=== PATIENT | male | born 1940 | race Caucasian/White ===

== ENCOUNTER 2017-12-10 09:17 | Inpatient (IN) | payer BC, OTHER ==
[~2017-12-10] VITALS: Ht 175.3 cm; Wt 86.2 kg
[2017-12-10 10:14] LABS: Basophils # (auto) 0 uL; Basophils % (auto) 0.3 % (0.0-2.0); Eosinophils # (auto) 0 uL; Eosinophils % (auto) 0.2 % (0.0-7.0); Hematocrit 45.7 % (41.0-53.0); Hemoglobin 15.4 g/dL (13.5-17.5); Lymphocytes # (auto) 0.8 uL; Lymphocytes % (auto) 9.4 % (10.0-50.0); Mean Corpuscular Hemoglobin 30.1 pg (28.0-32.0); Mean Corpuscular Hgb Conc. 33.6 g/dL (32.0-36.0); Mean Corpuscular Volume 89.5 fL (80.0-100.0); Monocytes # (auto) 0.9 uL; Neutrophils # (auto) 7.2 uL; Neutrophils % (auto) 80.1 % (37.0-80.0); Nucleated Red Blood Cells % 0.1 %; Platelet Count (auto) 250 10^3/uL (140-450); Red Blood Cells 5.11 10^6/uL (4.5-5.90); Red Cell Distribution Width 14.5 % (11.8-14.3)
[2017-12-10 10:41] LABS: Alanine Aminotransferase 333 U/L (16-61); Alkaline Phosphatase 393 U/L (45-117); Anion Gap 13 (5-15); Aspartate Aminotransferase 305 U/L (15-37); BUN/Creatinine Ratio 10.9; Bilirubin, Total 8.4 mg/dL (0.2-1.0); Blood Urea Nitrogen 13 mg/dL (7-18); Calcium 8.9 mg/dL (8.5-10.1); Carbon Dioxide 22 mmol/L (21-32); Chloride 97 mmol/L (98-107); GFR African American 77 mL/min; GFR Non-African American 63 mL/min; Glucose 188 mg/dL (74-106); Magnesium 1.6 mg/dL (1.6-2.6); Potassium 4.5 mmol/L (3.5-5.1); Sodium 132 mmol/L (136-145); Total Protein 7.3 g/dL (6.4-8.2)
[2017-12-10] MEDS ORDERED: DEXTROSE (50%) 50ML SYRG IV PRN (11:45)
[2017-12-10] MEDS ORDERED: SODIUM CHLORIDE 0.9% 1,000 ML IV SCH (11:49)
[2017-12-10] MEDS ORDERED: IOHEXOL 300 MG/ML 100ML BOTTLE IJ ONE (11:56)
[2017-12-10] MEDS ORDERED: HYDROcodone-ACET 5/325MG TAB PO PRN (12:00)
[2017-12-10] MEDS ORDERED: TEMAZEPAM 15 MG CAP PO PRN (12:00)
[2017-12-10] MEDS ORDERED: ACETAMINOPHEN 325 MG TAB PO PRN (12:00)
[2017-12-10] MEDS ORDERED: glipiZIDE 5 MG TAB PO ONE (12:00)
[2017-12-10] MEDS ORDERED: DOCUSATE SOD 100 MG CAP PO PRN (12:00)
[2017-12-10] MEDS ORDERED: MORPHINE SULFATE 4 MG/ML SYR/VIAL IV PRN ×2 (12:00)
[2017-12-10] MEDS ORDERED: Boost Glucose Control 8 Ounces PO SCH (12:00)
[2017-12-10] MEDS ORDERED: ZINC SULFATE 220 MG CAP PO ONE (12:00)
[2017-12-10] MEDS ORDERED: ONDANSETRON HCL 4 MG/2 ML VIAL IV PRN (12:00)
[2017-12-10] MEDS: InsuLIN REG 1unit/0.01ml Soln (100units/ml) SC SCH ×2 (12:00→16:07)
[2017-12-10] MEDS ORDERED: ASCORBIC ACID 500 MG TAB PO ONE (12:00)
[2017-12-10] MEDS: ACCU-CHEK COMFORT CURVE STRIP VI SCH ×2 (12:00→16:06)
[2017-12-10] MEDS ORDERED: NITROGLYCERIN 0.4 MG SL TAB SL PRN (12:00)
[2017-12-10] MEDS ORDERED: LISINOPRIL 20 MG TAB PO ONE (12:15)
[2017-12-10] MEDS ORDERED: MULTIPLE VITAMIN TAB PO ONE (12:15)
[2017-12-10] MEDS ORDERED: ASPirin-EC 81 mg tab PO ONE (12:15)
[2017-12-10] MEDS ORDERED: METOPROLOL SUCCINATE XL 50 MG TAB PO ONE ×2 (12:15)
[2017-12-10] MEDS ORDERED: FAMOTIDINE 20 MG TAB PO ONE (12:15)
[2017-12-10 12:30] LABS: INR 1.15 (0.9-1.15); Prothrombin Time 12.5 sec (9.37-12.3)
[2017-12-10 16:51] VITALS: BP 118/78
[2017-12-10] MEDS ORDERED: TERAZOSIN HCL 5 MG CAP PO SCH (22:00)
[2017-12-10] MEDS ORDERED: ASCORBIC ACID 500 MG TAB PO SCH (22:00)
[2017-12-10] MEDS ORDERED: FAMOTIDINE 20 MG TAB PO SCH (22:00)
[2017-12-10] MEDS ORDERED: ATORVASTATIN 20 MG TAB PO SCH (22:00)
[2017-12-11] MEDS ORDERED: glipiZIDE 5 MG TAB PO SCH (07:00)
[2017-12-11] MEDS ORDERED: LISINOPRIL 20 MG TAB PO SCH (10:00)
[2017-12-11] MEDS ORDERED: ASPirin-EC 81 mg tab PO SCH (10:00)
[2017-12-11] MEDS ORDERED: MULTIPLE VITAMIN TAB PO SCH (10:00)
[2017-12-11] MEDS ORDERED: METOPROLOL SUCCINATE XL 50 MG TAB PO SCH (10:00)
[2017-12-11] MEDS ORDERED: ZINC SULFATE 220 MG CAP PO SCH (10:00)
== END 2017-12-10 17:05 | disposition short-term general hospital (02) | DRG 843 ==
LOC: EDBD 09:17 → ER 09:17 → EDUNIT# 09:17 → TELE 09:18
PROVIDERS: ADMIT Internal Medicine; ATTEND Internal Medicine
DX: C79.9 Secondary malignant neoplasm of unspecified site (principal); K83.1 Obstruction of bile duct; E44.0 Moderate protein-calorie malnutrition; C22.1 Intrahepatic bile duct carcinoma; E11.21 Type 2 diabetes mellitus with diabetic nephropathy; E87.1 Hypo-osmolality and hyponatremia; K57.30 Diverticulosis of large intestine without perforation or abscess without bleeding; K75.9 Inflammatory liver disease, unspecified; I12.9 Hypertensive chronic kidney disease with stage 1 through stage 4 chronic kidney disease, or unspecified chronic kidney disease; I70.90 Unspecified atherosclerosis; R55 Syncope and collapse; E11.22 Type 2 diabetes mellitus with diabetic chronic kidney disease; N18.2 Chronic kidney disease, stage 2 (mild); Z88.0 Allergy status to penicillin; Z68.28 Body mass index [BMI] 28.0-28.9, adult
CPT/HCPCS: 36415; 70450; 74160; 74176; 80053; 83036; 83735; 84443; 84484; 85025; 85610; 87040; 93005; 96360; J1815